=== PATIENT | female | born 1995 | race Caucasian/White ===

== ENCOUNTER 2016-10-01 19:53 | Emergency (ER) | payer SELFPAY ==
[~2016-10-01] VITALS: Ht 167.6 cm; Wt 65.5 kg
[2016-10-01 21:18] VITALS: BP 125/61
== END 2016-10-01 21:20 | disposition home or self-care (01) ==
LOC: EMS 19:55
DX: S81.852A Open bite, left lower leg, initial encounter (principal); W54.0XXA Bitten by dog, initial encounter; Y93.89 Activity, other specified; Y92.89 Other specified places as the place of occurrence of the external cause; Y99.8 Other external cause status
CPT/HCPCS: 99283